=== PATIENT | female | born 2005 | race Caucasian/White ===

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

== ENCOUNTER 2023-05-18 18:48 | Emergency (ER) | payer OTHER, BC ==
[2023-05-18] MEDS ORDERED: Ibuprofen 600 MG Tab PO ONE (19:39)
[2023-05-18] MEDS ORDERED: Acetaminophen 325 MG Tab PO ONE (19:41)
== END 2023-05-18 20:23 | disposition home or self-care (01) ==
LOC: MW.ED 18:48
DX: M25.572 Pain in left ankle and joints of left foot (principal); I10 Essential (primary) hypertension; W18.30XA Fall on same level, unspecified, initial encounter
CPT/HCPCS: 73610; 73620; 99283; A9270